=== PATIENT | female | born 1990 | race Caucasian/White ===

== ENCOUNTER 2020-02-23 13:01 | Emergency (ER) | payer SELFPAY ==
[~2020-02-23] VITALS: Ht 162.6 cm; Wt 79.0 kg
[2020-02-23 13:11] VITALS: BP 106/79
[2020-02-23] MEDS ORDERED: SODIUM CHLORIDE 0.9% 1,000 ML IV ONE (15:30)
[2020-02-23] MEDS ORDERED: ACETAMINOPHEN 325MG TABLET PO PRN (15:30)
[2020-02-23] MEDS ORDERED: ONDANSETRON 4MG ODT PO ONE (15:30)
[2020-02-23 16:33] LABS: BASOPHILS % 0.3 % (0.0-2.0); EOSINOPHILS % 0.3 % (0.0-5.0); HEMOGLOBIN. 14.3 g/dL (12.0-16.0); LYMPHOCYTES % 27.1 % (20.0-50.0); MEAN CORPUSCULAR HEMOGLOBIN 32.9 pg (28.0-32.0); MEAN CORPUSCULAR VOLUME 91.9 fL (81.0-99.0); MEAN PLATELET VOLUME 7.5 fl (7.4-10.4); MONOCYTES % 8.6 % (2.0-8.0); NEUTROPHILS % 63.7 % (40.0-76.0); PLATELET 311 x1000/uL (130-400); RED BLOOD CELL COUNT 4.35 mill/uL (4.2-5.4); RED CELL DISTRIBUTION WIDTH 12.9 % (11.6-14.6)
[2020-02-23 16:41] LABS: CLARITY URINE TURBID (CLEAR); COLOR URINE DARK YELLOW (YELLOW); KETONES URINE 4+ (NEGATIVE); LEUKOCYTE ESTERASE URINE 2+ (NEGATIVE); NITRITE URINE POSITIVE (NEGATIVE); OCCULT BLOOD URINE NEGATIVE (NEGATIVE); PH URINE 6.5 (4.5-8.0); PROTEIN URINE 1+ (NEGATIVE); SPECIFIC GRAVITY URINE 1.025 (1.005-1.030)
[2020-02-23 16:41] LABS: CHLORIDE 105 mEq/L (98-107)
[2020-02-23 16:42] LABS: HCG SCREEN POSITIVE
[2020-02-23 17:09] LABS: B-HCG QUANTITATIVE 27266 mIU/mL (<3)
[2020-02-23] MEDS ORDERED: CEFTRIAXONE 1 G PREMIX 50 ML IV ONE (18:00)
== END 2020-02-23 19:29 | disposition home or self-care (01) ==
LOC: ER 13:01
DX: O23.02 Infections of kidney in pregnancy, second trimester (principal); O21.2 Late vomiting of pregnancy; O26.892 Other specified pregnancy related conditions, second trimester; F17.200 Nicotine dependence, unspecified, uncomplicated; Z3A.18 18 weeks gestation of pregnancy
CPT/HCPCS: 36415; 76805; 76857; 80053; 81003; 81025; 83690; 84702; 84703; 85025; 96365; 99284; J0696; J7030; Q0162

== ENCOUNTER 2020-11-18 08:06 | Emergency (ER) | payer MEDICAID ==
[~2020-11-18] VITALS: Ht 162.6 cm; Wt 80.0 kg
[2020-11-18 09:02] LABS: CLARITY URINE TURBID (CLEAR); COLOR URINE RED (YELLOW); KETONES URINE NEGATIVE (NEGATIVE); LEUKOCYTE ESTERASE URINE 2+ (NEGATIVE); NITRITE URINE NEGATIVE (NEGATIVE); OCCULT BLOOD URINE 3+ (NEGATIVE); PROTEIN URINE 1+ (NEGATIVE); SPECIFIC GRAVITY URINE 1.027 (1.005-1.030); UROBILINOGEN URINE 0.2 E.U./dL (0.2-1.0)
[2020-11-18 09:06] LABS: BASOPHILS % 0.5 % (0.0-2.0); EOSINOPHILS % 0.4 % (0.0-5.0); HEMOGLOBIN. 13.8 g/dL (12.0-16.0); LYMPHOCYTES % 35.7 % (20.0-50.0); MEAN CORPUSCULAR HEMOGLOBIN 33.3 pg (28.0-32.0); MEAN PLATELET VOLUME 8.2 fl (7.4-10.4); MONOCYTES % 5.4 % (2.0-8.0); PLATELET 253 x1000/uL (130-400); RED BLOOD CELL COUNT 4.15 mill/uL (4.2-5.4); RED CELL DISTRIBUTION WIDTH 12.2 % (11.6-14.6)
[2020-11-18 09:14] LABS: CHLORIDE 109 mEq/L (98-107)
[2020-11-18 09:25] LABS: B-HCG QUANTITATIVE < 1 mIU/mL (<3)
[2020-11-18] MEDS ORDERED: IBUP-2030 PO (09:58)
[2020-11-18 10:47] VITALS: BP 122/70
== END 2020-11-18 10:52 | disposition home or self-care (01) ==
LOC: ER 08:06
DX: N93.8 Other specified abnormal uterine and vaginal bleeding (principal)
CPT/HCPCS: 36415; 76801; 80053; 81003; 81025; 84702; 85025; 86850; 86900; 99284

== ENCOUNTER 2021-11-15 19:26 | Emergency (ER) | payer MEDICAID ==
[~2021-11-15] VITALS: Ht 162.6 cm; Wt 79.0 kg
[~2021-11-15 19:26] MED LIST: IBUP-2030 PO
[2021-11-15 20:02] LABS: BASOPHILS % 0.7 % (0.0-2.0); EOSINOPHILS % 0.8 % (0.0-5.0); HEMATOCRIT. 39.5 % (36.0-48.0); HEMOGLOBIN. 13.6 g/dL (12.0-16.0); LYMPHOCYTES % 34.4 % (20.0-50.0); MEAN CORPUSCULAR HEMOGLOBIN 32.9 pg (28.0-32.0); MEAN CORPUSCULAR VOLUME 95.1 fL (81.0-99.0); MEAN PLATELET VOLUME 7.9 fl (7.4-10.4); MONOCYTES % 5.7 % (2.0-8.0); NEUTROPHILS % 58.4 % (40.0-76.0); PLATELET 228 x1000/uL (130-400); RED BLOOD CELL COUNT 4.15 mill/uL (4.2-5.4); RED CELL DISTRIBUTION WIDTH 12.7 % (11.6-14.6)
[2021-11-15 20:09] LABS: CHLORIDE 105 mEq/L (98-107)
[2021-11-15 20:34] LABS: B-HCG QUANTITATIVE 1101 mIU/mL (<3)
[2021-11-15 23:14] VITALS: BP 112/78
== END 2021-11-15 23:17 | disposition home or self-care (01) ==
LOC: ER 19:26
DX: O26.891 Other specified pregnancy related conditions, first trimester (principal); O20.0 Threatened abortion; Z3A.01 Less than 8 weeks gestation of pregnancy
CPT/HCPCS: 36415; 76801; 80053; 84702; 85025; 86850; 86900; 99284